=== PATIENT | male | born 1990 | race American Indian/Alaskan Native ===

== ENCOUNTER 2019-05-15 18:00 | Emergency (ER) | payer MEDICAID ==
[2019-05-15 19:41] LABS: Basophils % (Auto) 0.4 % (0.0-1.8); Eosinophils # (Auto) 0.1 K/mm3 (0.0-0.4); Eosinophils % (Auto) 2.2 % (0.0-4.3); Hematocrit 38.1 % (35.5-45.6); Hemoglobin 12.4 gm/dl (11.8-15.2); Lymphocytes # (Auto) 2.3 K/mm3 (1.2-5.4); Mean Corpuscular HGB Conc 33 % (32-34); Mean Corpuscular Volume 89 fl (84-94); Monocytes # (Auto) 0.5 K/mm3 (0.0-0.8); Monocytes % (Auto) 8.2 % (0.0-7.3); Platelet Count 439 K/mm3 (140-440); Red Blood Count 4.31 M/mm3 (3.65-5.03); Red Cell Distribution Width 12.7 % (13.2-15.2)
--- NOTE | 2019-05-15 19:46 | Event Note ---
ED Screening Note Date of service: 05/15/19 Time: 19:43 ED Screening Note: Pt presents with complaints of seizure x today Pt is mentally challenged and a poor historian he states he is currently living at a alf and fell down-unsure of how states diffuse pain all over body This initial assessment/diagnostic orders/clinical plan/treatment(s) is/are subject to change based on patients health status, clinical progression and re- assessment by fellow clinical providers in the ED. Further treatment and workup at subsequent clinical providers discretion. Patient/guardian urged not to elope from the ED as their condition may be serious if not clinically assessed and managed. Initial orders include: labs
[2019-05-15 19:53] LABS: BUN/Creatinine Ratio 46; Blood Urea Nitrogen 23 mg/dL (9-20); Calcium 9.4 mg/dL (8.4-10.2); Hemolysis Index 33
[2019-05-15 19:56] LABS: Alanine Aminotransferase 15 units/L (7-56); Albumin 3.7 g/dL (3.9-5)
[2019-05-15 19:57] LABS: Bilirubin,Direct < 0.2 mg/dL (0-0.2)
[2019-05-15 20:16] LABS: Bilirubin,Urine NEG (Negative); Blood,Urine MOD (Negative); Color,Urine Yellow (Yellow); Protein,Urine <15 mg/dL mg/dL (Negative); RBC,Urine > 182.0 /HPF (0.0-6.0); Urobilinogen,Urine < 2.0 mg/dL (<2.0)
[2019-05-15] MEDS ORDERED: MORPHINE 2 MG/1 ML INJ IV ONE (20:24)
[2019-05-15] MEDS ORDERED: SODIUM CHLORIDE 0.9% 1000 ML 1,000 ML IV ONE (20:24)
[2019-05-15] MEDS ORDERED: KETOROLAC 30 MG/1 ML INJ IV ONE (20:24)
--- NOTE | 2019-05-15 22:29 | Cat Scan Report ---
CT ABDOMEN AND PELVIS WITHOUT CONTRAST INDICATION / CLINICAL INFORMATION: hematuria. TECHNIQUE: Axial CT images were obtained through the abdomen and pelvis without IV contrast. All CT scans at [facility] location are performed using CT dose reduction for ALARA by means of automated exposure control. COMPARISON: None available. FINDINGS: LOWER CHEST: No significant abnormality. LIVER: No significant abnormality. GALLBLADDER: No significant abnormality. BILE DUCTS: No significant abnormality. PANCREAS: No significant abnormality. SPLEEN: No significant abnormality. ADRENALS: No significant abnormality. RIGHT KIDNEY and URETER: No significant abnormality. LEFT KIDNEY and URETER: No significant abnormality. STOMACH and SMALL BOWEL: No significant abnormality. COLON: No significant abnormality. APPENDIX: No significant abnormality. PERITONEUM: No free fluid. No free air. No fluid collection. LYMPH NODES: No significant adenopathy. AORTA and ARTERIES: No significant abnormality. IVC and VEINS: No significant abnormality. URINARY BLADDER: The urinary bladder is mostly collapsed.. REPRODUCTIVE ORGANS: No significant abnormality. ADDITIONAL FINDINGS: None. SKELETAL SYSTEM: No significant abnormality. IMPRESSION: No evidence of nephrolithiasis or obstructive ureteral calculus identified. Signer Name: Kareem Fox MD Signed: 05/15/2019 10:25 PM Workstation Name: [id number]
--- NOTE | 2019-05-15 23:15 | Emergency Department Report ---
ED Male HPI - General Chief complaint: Urogenital-Male Stated complaint: PAINFUL URINATION Time Seen by Provider: 05/15/19 19:40 Source: patient Mode of arrival: Ambulatory Limitations: No Limitations - History of Present Illness Initial comments: Patient is a 28-year-old F [place] male with a past medical history of diabetes who is presenting with hematuria for the past 2 weeks. Patient has some pain with urination. He states that there is blood in his urine daily. He denies any testicular pain or swelling at this time. States he has some mild suprapubic discomfort. Patient states he is never had a history of kidney stones to his knowledge. blood in urine, dysuria. denies: discharge, swelling, urinary retention, fever, nausea/vomiting, incontinence - Related Data Previous Rx's Medication Instructions Recorded Last Taken Type Ciprofloxacin HCl [Ciprofloxacin 500 mg PO Q12HR #14 tab 05/15/19 Unknown Rx TAB] Allergies Allergy/AdvReac Type Severity Reaction Status Date / Time No Known Allergies Allergy Verified 05/15/19 18:22 ED Review of Systems ROS: Stated complaint: PAINFUL URINATION Other details as noted in HPI Comment: All other systems reviewed and negative ED Past Medical Hx - Past Medical History Previous Medical History?: Yes Hx Diabetes: Yes - Surgical History Past Surgical History?: No - Social History Smoking Status: Never Smoker Substance Use Type: None - Medications Home Medications: Home Medications Medication Instructions Recorded Confirmed Last Taken Type Ciprofloxacin HCl [Ciprofloxacin 500 mg PO Q12HR #14 tab 05/15/19 Unknown Rx TAB] ED Physical Exam - General Limitations: No Limitations General appearance: alert, in no apparent distress - Head Head exam: Present: atraumatic, normocephalic - Eye Eye exam: Present: normal appearance - ENT ENT exam: Present: mucous membranes moist - Neck Neck exam: Present: normal inspection - Respiratory Respiratory exam: Present: normal lung sounds bilaterally. Absent: respiratory distress, wheezes, rales, rhonchi - Cardiovascular Cardiovascular Exam: Present: regular rate, normal rhythm, normal heart sounds. Absent: systolic murmur, diastolic murmur, rubs, gallop - GI/Abdominal GI/Abdominal exam: Present: soft, normal bowel sounds. Absent: distended, tenderness, guarding, rebound - Rectal Rectal exam: Present: deferred - Extremities Exam Extremities exam: Present: normal inspection - Back Exam Back exam: Present: normal inspection - Neurological Exam Neurological exam: Present: alert, oriented X3 - Psychiatric Psychiatric exam: Present: normal affect, normal mood - Skin Skin exam: Present: warm, dry, intact, normal color. Absent: rash ED Course Vital Signs 05/15/19 19:58 Temperature 98 F Pulse Rate 86 Respiratory 18 Rate Blood Pressure 127/58 [Left] O2 Sat by Pulse 98 Oximetry ED Medical Decision Making - Lab Data Result diagrams: 05/15/19 19:30 05/15/19 19:30 Lab Results 05/15/19 05/15/19 05/15/19 Range/Units 19:30 19:30 19:30 WBC 6.1 (4.5-11.0) K/mm3 RBC 4.31 (3.65-5.03) M/mm3 Hgb 12.4 (11.8-15.2) gm/dl Hct 38.1 (35.5-45.6) % MCV 89 (84-94) fl MCH 29 (28-32) pg MCHC 33 (32-34) % RDW 12.7 L (13.2-15.2) % Plt Count 439 (140-440) K/mm3 Lymph % (Auto) 38.0 H (13.4-35.0) % [place] % (Auto) 8.2 H (0.0-7.3) % Eos % (Auto) 2.2 (0.0-4.3) % Baso % (Auto) 0.4 (0.0-1.8) % Lymph # 2.3 (1.2-5.4) K/mm3 [place] # 0.5 (0.0-0.8) K/mm3 Eos # 0.1 (0.0-0.4) K/mm3 Baso # 0.0 (0.0-0.1) K/mm3 Seg Neutrophils % 51.2 (40.0-70.0) % Seg Neutrophils # 3.1 (1.8-7.7) K/mm3 Sodium 135 L (137-145) mmol/L Potassium 4.6 (3.6-5.0) mmol/L Chloride 100.0 (98-107) mmol/L Carbon Dioxide 22 (22-30) mmol/L Anion Gap 18 mmol/L BUN 23 H (9-20) mg/dL Creatinine 0.5 L (0.8-1.5) mg/dL Estimated GFR > 60 ml/min BUN/Creatinine Ratio 46 % Glucose 72 L (75-100) mg/dL POC Glucose (70-105) Calcium 9.4 (8.4-10.2) mg/dL Magnesium (1.7-2.3) mg/dL Total Bilirubin 0.20 (0.1-1.2) mg/dL Direct Bilirubin < 0.2 (0-0.2) mg/dL Indirect Bilirubin 0.0 mg/dL AST 19 (5-40) units/L ALT 15 (7-56) units/L Alkaline Phosphatase 64 (35-129) units/L Total Protein 7.7 (6.3-8.2) g/dL Albumin 3.7 L (3.9-5) g/dL Albumin/Globulin Ratio 0.9 % Urine Color (Yellow) Urine Turbidity (Clear) Urine pH (5.0-7.0) Ur Specific [place] (1.003-1.030) Urine Protein (Negative) mg/dL Urine Glucose (UA) (Negative) mg/dL Urine Ketones (Negative) mg/dL Urine Blood (Negative) Urine Nitrite (Negative) Urine Bilirubin (Negative) Urine Urobilinogen (<2.0) mg/dL Ur Leukocyte Esterase (Negative) Urine WBC (Auto) (0.0-6.0) /HPF Urine RBC (Auto) (0.0-6.0) /HPF U Epithel Cells (Auto) (0-13.0) /HPF 05/15/19 05/15/19 05/15/19 Range/Units 19:30 19:58 19:58 WBC (4.5-11.0) K/mm3 RBC (3.65-5.03) M/mm3 Hgb (11.8-15.2) gm/dl Hct (35.5-45.6) % MCV (84-94) fl MCH (28-32) pg MCHC (32-34) % RDW (13.2-15.2) % Plt Count (140-440) K/mm3 Lymph % (Auto) (13.4-35.0) % [place] % (Auto) (0.0-7.3) % Eos % (Auto) (0.0-4.3) % Baso % (Auto) (0.0-1.8) % Lymph # (1.2-5.4) K/mm3 [place] # (0.0-0.8) K/mm3 Eos # (0.0-0.4) K/mm3 Baso # (0.0-0.1) K/mm3 Seg Neutrophils % (40.0-70.0) % Seg Neutrophils # (1.8-7.7) K/mm3 Sodium (137-145) mmol/L Potassium (3.6-5.0) mmol/L Chloride (98-107) mmol/L Carbon Dioxide (22-30) mmol/L Anion Gap mmol/L BUN (9-20) mg/dL Creatinine (0.8-1.5) mg/dL Estimated GFR ml/min BUN/Creatinine Ratio % Glucose (75-100) mg/dL POC Glucose 61 L (70-105) Calcium (8.4-10.2) mg/dL Magnesium 2.00 (1.7-2.3) mg/dL Total Bilirubin (0.1-1.2) mg/dL Direct Bilirubin (0-0.2) mg/dL Indirect Bilirubin mg/dL AST (5-40) units/L ALT (7-56) units/L Alkaline Phosphatase (35-129) units/L Total Protein (6.3-8.2) g/dL Albumin (3.9-5) g/dL Albumin/Globulin Ratio % Urine Color Yellow (Yellow) Urine Turbidity Clear (Clear) Urine pH 7.0 (5.0-7.0) Ur Specific [place] 1.020 (1.003-1.030) Urine Protein <15 mg/dl (Negative) mg/dL Urine Glucose (UA) Neg (Negative) mg/dL Urine Ketones Neg (Negative) mg/dL Urine Blood Mod (Negative) Urine Nitrite Neg (Negative) Urine Bilirubin Neg (Negative) Urine Urobilinogen < 2.0 (<2.0) mg/dL Ur Leukocyte Esterase Neg (Negative) Urine WBC (Auto) 8.0 H (0.0-6.0) /HPF Urine RBC (Auto) > 182.0 (0.0-6.0) /HPF U Epithel Cells (Auto) < 1.0 (0-13.0) /HPF - Radiology Data CT ABDOMEN AND PELVIS WITHOUT CONTRAST INDICATION / CLINICAL INFORMATION: hematuria. TECHNIQUE: Axial CT images were obtained through the abdomen and pelvis without IV contrast. All CT scans at this location are performed using CT dose reduction for ALARA by means of automated exposure control. COMPARISON: None available. FINDINGS: LOWER CHEST: No significant abnormality. LIVER: No significant abnormality. GALLBLADDER: No significant abnormality. BILE DUCTS: No significant abnormality. PANCREAS: No significant abnormality. SPLEEN: No significant abnormality. ADRENALS: No significant abnormality. RIGHT KIDNEY and URETER: No significant abnormality. LEFT KIDNEY and URETER: No significant abnormality. STOMACH and SMALL BOWEL: No significant abnormality. COLON: No significant abnormality. APPENDIX: No significant abnormality. PERITONEUM: No free fluid. No free air. No fluid collection. LYMPH NODES: No significant adenopathy. AORTA and ARTERIES: No significant abnormality. IVC and VEINS: No significant abnormality. URINARY BLADDER: The urinary bladder is mostly collapsed.. REPRODUCTIVE ORGANS: No significant abnormality. ADDITIONAL FINDINGS: None. SKELETAL SYSTEM: No significant abnormality. IMPRESSION: No evidence of nephrolithiasis or obstructive ureteral calculus identified. Signer Name: Kareem Fox MD Signed: 05/15/2019 10:25 PM Workstation Name: [id number] - Medical Decision Making Patient is resting comfortably while in the emergency department. CT shows no gross abnormality. There is no kidney stone passing and no obvious mass in the kidney. Patient be referred to urology for further management. Critical care attestation.: If time is entered above; I have spent that time in minutes in the direct care of this critically ill patient, excluding procedure time. ED Disposition Clinical Impression: Hematuria Qualifiers: Hematuria type: gross Qualified Code(s): R31.0 - Gross hematuria Disposition: TO HOME OR SELFCARE Is pt being admited?: No Does the pt Need Aspirin: No Condition: Stable Instructions: Acute Hematuria (ED) Referrals: GALLITO GIPSON MD [Staff Physician] - 3-5 Days Time of Disposition: 23:17
[2019-05-16 00:19] VITALS: BP 125/70
== END 2019-05-15 23:55 | disposition home or self-care (01) ==
LOC: ED 18:00
DX: R31.9 Hematuria, unspecified (principal); Z79.899 Other long term (current) drug therapy
CPT/HCPCS: 36415; 74176; 80048; 80076; 81001; 82962; 83735; 85025; 96374; 99284; J1885; J7030; J2270

== ENCOUNTER 2019-05-17 20:56 | Emergency (ER) | payer MEDICAID ==
[2019-05-17] MEDS ORDERED: ZIPRASIDONE MESYLATE 20 MG VIAL IM ONE ×2 (21:19→21:20)
--- NOTE | 2019-05-17 22:28 | Emergency Department Report ---
<CRUZ MARTÍNEZ - Last Filed: 05/17/19 22:25> ED General Adult HPI - General Chief complaint: Hyperglycemia Stated complaint: HYPERGYCEMIA/MH EVAL Time Seen by Provider: 05/17/19 21:03 Source: EMS Mode of arrival: Ambulatory Limitations: No Limitations - History of Present Illness Initial comments: Patient is a 28-year-old F [place] male who is presenting with hypoglycemia. Paramedics have brought the patient in because of elevated blood glucose. Patient was recently here in the hospital and was being seen for hematuria. No obvious cysts cause of the hematuria was found that time was given outpatient resources. Patient on his arrival was refusing to have his do his vital signs and despite calling paramedics to bring him to the hospital was very aggressive and oppositional with our staff. Patient was noted to be cursing and yelling in the emergency department. - Related Data Previous Rx's Medication Instructions Recorded Last Taken Type Ciprofloxacin HCl [Ciprofloxacin 500 mg PO Q12HR #14 tab 05/15/19 Unknown Rx TAB] Allergies Allergy/AdvReac Type Severity Reaction Status Date / Time No Known Allergies Allergy Verified 05/17/19 21:21 ED Review of Systems Comment: All other systems reviewed and negative ED Past Medical Hx - Past Medical History Hx Diabetes: Yes - Social History Smoking Status: Never Smoker Substance Use Type: None - Medications Home Medications: Home Medications Medication Instructions Recorded Confirmed Last Taken Type Ciprofloxacin HCl [Ciprofloxacin 500 mg PO Q12HR #14 tab 05/15/19 Unknown Rx TAB] ED Physical Exam - General Limitations: No Limitations General appearance: alert, in no apparent distress - Head Head exam: Present: atraumatic, normocephalic - Eye Eye exam: Present: normal appearance, PERRL, EOMI - ENT ENT exam: Present: mucous membranes moist - Neck Neck exam: Present: normal inspection - Cardiovascular Cardiovascular Exam: Present: regular rate, normal rhythm - GI/Abdominal GI/Abdominal exam: Present: soft. Absent: distended - Psychiatric Psychiatric exam: Present: normal affect, agitated, other (Patient is cursing loudly and was very aggressive with staff.) - Skin Skin exam: Present: warm, dry, intact, normal color. Absent: rash ED Course - Reevaluation(s) Reevaluation #1: 05/17/19 22:27 Patient is had to be placed in isolation. Patient was banging on the door kaplan violently. Patient's blood glucose was only in the 200 range. Patient was given Geodon and will attempt to get blood work on the patient and have him evaluated by our mental health staff. 05/17/19 22:28 ED Disposition Clinical Impression: Hyperglycemia, Agitation Hematuria Qualifiers: Hematuria type: unspecified type Qualified Code(s): R31.9 - Hematuria, unspe cified Disposition: DC- TO HOME OR SELFCARE Condition: Stable <IAIN FRANCIS III - Last Filed: 05/18/19 04:05> ED Course - Reevaluation(s) Reevaluation #2: Patient signed out to me from previous physician, Dr. Martínez. Patient has pending labs for medical clearance. 05/17/19 23:00 Reevaluation #3: Patient had initial labs done which showed a hyperkalemia and elevated blood sugar and hyponatremia. Patient was given fluids and IV insulin and his potassium improved as well as his chemistry improved. Patient is medically cleared. Patient will remain in the ER as an ER hold until seen by our mental health team. Patient's final disposition will come from our mental health and psychiatry team. I discussed all results with patient. I discussed plan of care with patient. Patient agrees with plan of care. 05/18/19 04:08 ED Medical Decision Making - Lab Data Result diagrams: 05/17/19 22:35 05/18/19 02:13 ED Disposition Is pt being admited?: No Does the pt Need Aspirin: No Time of Disposition: 04:15 <TANYAJIM - Last Filed: 05/18/19 11:43> ED Review of Systems ROS: Stated complaint: HYPERGYCEMIA/MH EVAL Other details as noted in HPI ED Course Vital Signs 05/18/19 05/18/19 05/18/19 02:15 08:34 10:10 Temperature 97.3 F L 97.8 F Pulse Rate 79 77 Respiratory 18 18 18 Rate Blood Pressure 114/69 128/75 [Right] O2 Sat by Pulse 97 97 99 Oximetry ED Medical Decision Making - Lab Data Result diagrams: 05/17/19 22:35 05/18/19 02:13 - Medical Decision Making I spoke Frank Velasco per phone new caregiver. Mr. Martínez has been under his care since Thursday. Mr. Martínez has mild cognitive delay. Was recently hospital[facility]ad at [facility] in [place]. Patient takes Depakote for mood stabilization. Has been extremely agitated and aggressive at [facility]. He has called 911 several times. Mr. Martínez tells me "I am not going back to that place." Our mental health pottery machine operator coordinated care with Mr. Velasco the supervisor wet room. Mr. Velasco well take Mr. Martínez to his correction. Psychiatry appointment scheduled for tomorrow at 10:30 AM. Critical care attestation.: If time is entered above; I have spent that time in minutes in the direct care of this critically ill patient, excluding procedure time. ED Disposition Is pt being admited?: No Does the pt Need Aspirin: No Time of Disposition: 11:43
[2019-05-17 22:51] LABS: Basophils % (Auto) 0.4 % (0.0-1.8); Eosinophils # (Auto) 0.1 K/mm3 (0.0-0.4); Hematocrit 40.5 % (35.5-45.6); Mean Corpuscular HGB Conc 32 % (32-34); Mean Corpuscular Volume 89 fl (84-94); Monocytes # (Auto) 0.4 K/mm3 (0.0-0.8); Monocytes % (Auto) 5.6 % (0.0-7.3); Platelet Count 458 K/mm3 (140-440); Red Blood Count 4.57 M/mm3 (3.65-5.03); Red Cell Distribution Width 12.7 % (13.2-15.2)
[2019-05-17 23:01] LABS: Bilirubin,Urine NEG (Negative); Blood,Urine LG (Negative); Color,Urine Yellow (Yellow); Mucus,Urine FEW /HPF; RBC,Urine > 182.0 /HPF (0.0-6.0); Urobilinogen,Urine < 2.0 mg/dL (<2.0)
[2019-05-17 23:02] LABS: Amphetamine Screen,Urine PRESUMPTIVE NEGATIVE; Benzodiazepines Screen,Urine PRESUMPTIVE NEGATIVE; Cannabinoid Screen,Urine PRESUMPTIVE NEGATIVE; Cocaine Screen,Urine PRESUMPTIVE NEGATIVE; Methadone Screen,Urine PRESUMPTIVE NEGATIVE; Opiate Screen,Urine PRESUMPTIVE NEGATIVE
[2019-05-17 23:10] LABS: BUN/Creatinine Ratio 40; Blood Urea Nitrogen 24 mg/dL (9-20); Calcium 9.6 mg/dL (8.4-10.2); Hemolysis Index 8
[2019-05-17] MEDS ORDERED: SODIUM CHLORIDE 0.9% 1000 ML 1,000 ML IV ONE (23:44)
[2019-05-17] MEDS ORDERED: DEXTROSE 50% IN WATER (25GM) 50 ML SYRINGE IV PRN (23:44)
[2019-05-18 02:58] LABS: BUN/Creatinine Ratio 48; Blood Urea Nitrogen 24 mg/dL (9-20); Calcium 8.8 mg/dL (8.4-10.2); Hemolysis Index 10
[2019-05-18] MEDS ORDERED: INSULIN LISPRO 100 UNIT/ML SUB-Q SCH ×2 (07:30)
[2019-05-18 10:10] VITALS: BP 128/75
[2019-05-18] MEDS ORDERED: OLANzapine ZYDIS 5 MG TAB PO PRN (12:02)
[2019-05-18] MEDS ORDERED: OLANzapine ZYDIS 5 MG TAB PO ONE (12:03)
== END 2019-05-18 12:44 | disposition home or self-care (01) ==
LOC: ED 20:56
DX: E11.65 Type 2 diabetes mellitus with hyperglycemia (principal); R31.9 Hematuria, unspecified; R45.1 Restlessness and agitation; Z79.899 Other long term (current) drug therapy
CPT/HCPCS: 36415; 80048; 80164; 80307; 81001; 82962; 85025; 87086; 96360; 96372; 99284; J3486; J7030; 80320; G0480; J1815

== ENCOUNTER 2019-05-21 12:33 | Emergency (ER) | payer MEDICAID ==
[2019-05-21] MEDS ORDERED: SODIUM CHLORIDE 0.9% 1000 ML 1,000 ML IV ONE ×2 (13:10→14:52)
[2019-05-21 14:06] LABS: Basophils % (Auto) 0.6 % (0.0-1.8); Eosinophils % (Auto) 1.2 % (0.0-4.3); Hematocrit 38.1 % (35.5-45.6); Hemoglobin 12.4 gm/dl (11.8-15.2); Lymphocytes # (Auto) 1.3 K/mm3 (1.2-5.4); Lymphocytes % (Auto) 35.3 % (13.4-35.0); Mean Corpuscular HGB Conc 33 % (32-34); Mean Corpuscular Volume 89 fl (84-94); Monocytes # (Auto) 0.3 K/mm3 (0.0-0.8); Monocytes % (Auto) 7.4 % (0.0-7.3); Platelet Count 357 K/mm3 (140-440); Red Blood Count 4.28 M/mm3 (3.65-5.03); Red Cell Distribution Width 12.6 % (13.2-15.2)
[2019-05-21 14:08] LABS: Bilirubin,Urine NEG (Negative); Blood,Urine SM (Negative); Color,Urine Colorless (Yellow); Protein,Urine <15 mg/dL mg/dL (Negative); Urobilinogen,Urine < 2.0 mg/dL (<2.0); WBC,Urine < 1.0 /HPF (0.0-6.0)
[2019-05-21 14:14] LABS: BUN/Creatinine Ratio 28; Blood Urea Nitrogen 17 mg/dL (9-20); Calcium 9.6 mg/dL (8.4-10.2); Hemolysis Index 9
[2019-05-21 14:16] LABS: Amphetamine Screen,Urine PRESUMPTIVE NEGATIVE; Benzodiazepines Screen,Urine PRESUMPTIVE NEGATIVE; Cannabinoid Screen,Urine PRESUMPTIVE NEGATIVE; Cocaine Screen,Urine PRESUMPTIVE NEGATIVE; Methadone Screen,Urine PRESUMPTIVE NEGATIVE; Opiate Screen,Urine PRESUMPTIVE NEGATIVE
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
[2019-05-21] MEDS ORDERED: INSULIN REGULAR, HUMAN 100 UNITS/1 ML IV ONE (14:53)
[2019-05-21 16:39] LABS: BUN/Creatinine Ratio 30; Blood Urea Nitrogen 15 mg/dL (9-20); Hemolysis Index 5
--- NOTE | 2019-05-22 11:47 | Event Note ---
Date: 05/22/19 Patient was assessed by the DD team and patient is not a harm to self or others. Patient will go back to the longterm.
[2019-05-22 12:24] VITALS: BP 116/65
== END 2019-05-22 13:40 | disposition home or self-care (01) ==
LOC: ED 12:33
DX: E11.65 Type 2 diabetes mellitus with hyperglycemia (principal); R45.1 Restlessness and agitation; Z02.89 Encounter for other administrative examinations; Z79.899 Other long term (current) drug therapy
CPT/HCPCS: 36415; 80048; 80307; 81001; 82805; 82962; 85025; 96360; 99284; J7030; 80320; 96361; G0480

== ENCOUNTER 2019-06-11 19:10 | Emergency (ER) | payer MEDICAID ==
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
[2019-06-11 20:44] LABS: Basophils % (Auto) 0.4 % (0.0-1.8); Eosinophils % (Auto) 0.6 % (0.0-4.3); Hematocrit 44.5 % (35.5-45.6); Hemoglobin 14.5 gm/dl (11.8-15.2); Lymphocytes # (Auto) 1.7 K/mm3 (1.2-5.4); Lymphocytes % (Auto) 34.9 % (13.4-35.0); Mean Corpuscular HGB Conc 33 % (32-34); Mean Corpuscular Volume 89 fl (84-94); Monocytes # (Auto) 0.3 K/mm3 (0.0-0.8); Monocytes % (Auto) 5.7 % (0.0-7.3); Platelet Count 266 K/mm3 (140-440); Red Blood Count 5.01 M/mm3 (3.65-5.03); Red Cell Distribution Width 13.5 % (13.2-15.2)
[2019-06-11 21:01] LABS: BUN/Creatinine Ratio 33; Blood Urea Nitrogen 23 mg/dL (9-20); Calcium 9.6 mg/dL (8.4-10.2); Hemolysis Index 11
[2019-06-11 21:47] LABS: Bacteria,Urine 1+ /HPF (Negative); Mucus,Urine FEW /HPF
[2019-06-11 21:48] LABS: Bilirubin,Urine NEG (Negative); Blood,Urine NEG (Negative); Color,Urine Yellow (Yellow); Protein,Urine <15 mg/dL mg/dL (Negative); Urobilinogen,Urine < 2.0 mg/dL (<2.0)
[2019-06-11 21:52] LABS: Amphetamine Screen,Urine PRESUMPTIVE NEGATIVE; Benzodiazepines Screen,Urine PRESUMPTIVE NEGATIVE; Cannabinoid Screen,Urine PRESUMPTIVE NEGATIVE; Cocaine Screen,Urine PRESUMPTIVE NEGATIVE; Methadone Screen,Urine PRESUMPTIVE NEGATIVE; Opiate Screen,Urine PRESUMPTIVE NEGATIVE
[2019-06-12 13:47] VITALS: BP 120/60
== END 2019-06-12 15:15 | disposition home or self-care (01) ==
LOC: ED 19:10
DX: R45.1 Restlessness and agitation (principal); F41.9 Anxiety disorder, unspecified; F91.9 Conduct disorder, unspecified; E11.9 Type 2 diabetes mellitus without complications; Z79.899 Other long term (current) drug therapy
CPT/HCPCS: 36415; 80048; 80307; 80320; 81001; 82962; 85025; G0480

== ENCOUNTER 2020-01-30 21:02 | Emergency (ER) | payer SELFPAY ==
[2020-01-31] MEDS ORDERED: DEXTROSE 50% IN WATER (25GM) 50 ML VIAL IV PRN (03:39)
--- NOTE | 2020-01-31 03:40 | Emergency Department Report ---
ED General Adult HPI - General Chief complaint: Medical Clearance Stated complaint: MH EVALUATION PUI?: No Time Seen by Provider: 01/31/20 03:31 Source: patient, EMS, RN notes reviewed, old records reviewed Mode of arrival: Ambulatory Limitations: No Limitations - History of Present Illness Initial comments: The patient was evaluated in the emergency department for symptoms described in the history of present illness. He/she was evaluated in the context of the global COVID-19 pandemic, which necessitated consideration that the patient might be at risk for infection with the virus that causes COVID-19. Institutional protocols and algorithms that pertain to the evaluation of patients at risk for COVID-19 are in a state of rapid change based on information released by regulatory bodies including the CDC and federal and state organizations. These policies and algorithms were followed during the patient's care in the emergency department. Please note that these policies, procedures and recommendations changed on a rapid basis. Patient is a 29-year-old gentleman with a reported history of bipolar and type 1 diabetes. He is brought to the hospital by emergency medical services. The patient's chief complaint is that he wants a new place to live. He denies physical pain. He denies homicidality and suicidality. He denies fever, cough, loss of taste, loss of smell. He denies urinary symptoms. He states that he walked/run away from his long term, because he does not like it there. He tells me that he walked and ran away, and went to a nail salon, where he reports that emergency medical services were contacted. He denies all medical complaints at this time. He is listening to music on a tablet device. He is not accompanied by friends or family at this time for additional information or collateral information. -: days(s) (1) Improves with: none Worsens with: none Associated Symptoms: denies other symptoms - Related Data Previous Rx's Medication Instructions Recorded Last Taken Type OLANzapine ZYDIS [ZyPREXA Zydis] 5 mg PO DAILY #30 tab.rapdis 05/18/19 Unknown Rx Allergies Allergy/AdvReac Type Severity Reaction Status Date / Time No Known Allergies Allergy Verified 05/17/19 21:21 ED Review of Systems ROS: Stated complaint: MH EVALUATION Other details as noted in HPI Comment: All other systems reviewed and negative ED Past Medical Hx - Past Medical History Hx Diabetes: Yes Hx Psychiatric Treatment: Yes (schizophrenia,bipolar) - Social History Smoking Status: Never Smoker Substance Use Type: None - Medications Home Medications: Home Medications Medication Instructions Recorded Confirmed Last Taken Type OLANzapine ZYDIS [ZyPREXA Zydis] 5 mg PO DAILY #30 tab.rapdis 05/18/19 05/22/19 Unknown Rx ED Physical Exam - General Limitations: No Limitations General appearance: alert, in no apparent distress - Head Head exam: Present: atraumatic, normocephalic - Eye Eye exam: Present: normal appearance, EOMI, other (Left-sided exotropic strabismus). Absent: nystagmus - ENT ENT exam: Present: normal exam, normal orophraynx, mucous membranes moist, normal external ear exam - Neck Neck exam: Present: normal inspection, full ROM. Absent: tenderness, meningismus - Respiratory Respiratory exam: Present: normal lung sounds bilaterally. Absent: respiratory distress, wheezes, rales, rhonchi, stridor, decreased breath sounds - Cardiovascular Cardiovascular Exam: Present: regular rate, normal rhythm, normal heart sounds. Absent: bradycardia, tachycardia, irregular rhythm, systolic murmur, diastolic murmur, rubs, gallop - GI/Abdominal GI/Abdominal exam: Present: soft, normal bowel sounds. Absent: distended, tenderness, guarding, rebound, rigid, pulsatile mass - Rectal Rectal exam: Present: deferred - Extremities Exam Extremities exam: Present: normal inspection, full ROM, other (2+ pulses noted in the bilateral upper and lower extremities. There is no palpable cord. negative Homans sign. Muscular compartments are soft. The pelvis is stable.). Absent: pedal edema, calf tenderness - Back Exam Back exam: Present: normal inspection, full ROM. Absent: tenderness, CVA tenderness (R), CVA tenderness (L), paraspinal tenderness, vertebral tenderness - Neurological Exam Neurological exam: Present: alert, oriented X3, other (No facial droop. Tongue midline. Extraocular movements intact bilaterally. Facial sensation intact to light touch in V1, V2, V3 distribution bilaterally. 5 and a 5 strength in 4 extremities. Sensation intact to light touch in 4 extremities.) - Psychiatric Psychiatric exam: Present: normal affect, normal mood. Absent: homicidal ideation, suicidal ideation - Skin Skin exam: Present: warm, dry, intact, normal color. Absent: rash ED Course Vital Signs 01/30/20 01/31/20 22:43 03:54 Temperature 98.7 F Pulse Rate 92 H Respiratory 16 18 Rate Blood Pressure 124/74 O2 Sat by Pulse 97 Oximetry ED Medical Decision Making - Lab Data Vital Signs 01/30/20 01/31/20 22:43 03:54 Temperature 98.7 F Pulse Rate 92 H Respiratory 16 18 Rate Blood Pressure 124/74 O2 Sat by Pulse 97 Oximetry Lab Results 01/31/20 01/31/20 Range/Units 03:04 03:55 POC Glucose < 40 L 134 H (70-105) mg/dL - Medical Decision Making Differential diagnosis, including but not limited to: Resolved hypoglycemia, case management patient Assessment and plan: 29-year-old gentleman with no acute medical complaints at this time, resolved hypoglycemia, states he does not take oral sulfonylureas without homicidality, suicidality, fever, cough, loss of taste, loss of smell, no indication of homicidality or suicidality, pleasant, calm and cooperative. Does not meet criteria for 1013 hold or involuntary hold at this time. To me, his main complaint is request for a new long term placement. This appears to be primarily a case issue. Initially found to be hypoglycemic, given oral foods, repeat Accu-Chek within normal limits. He is not clinically hyperglycemic or encephalopathic at this time. As needed Accu-Cheks ordered, as needed dextrose ordered, regular diet ordered, and case management consultation ordered. Patient does not appear to have an emergent medical condition at this time that meets criteria for inpatient admission or hospitalization. He does not meet criteria for 1013 hold or involuntary confinement. He is medically safe and suitable for discharge at this time, but final disposition pending case management evaluation. Critical care attestation.: If time is entered above; I have spent that time in minutes in the direct care of this critically ill patient, excluding procedure time. ED Disposition Clinical Impression: History of hypoglycemia, Case management patient Disposition: DC-01 TO HOME OR SELFCARE Is pt being admited?: No Does the pt Need Aspirin: No Condition: Stable Additional Instructions: Please continue current outpatient medications. Follow-up with your primary care doctor within the next week.. Follow-up with your psychiatrist within the next month. Please adhere to a diabetic appropriate diet. Please return to the emergency room right away with new pain, worsening pain, migration of pain, projectile vomiting, change in mental status, confusion, inability to tolerate liquid feeds, new, worsened or different symptoms not present on the initial emergency room evaluation. Referrals: EJ CARTER MD [Staff Physician[facility] Days
[2020-01-31 07:06] VITALS: BP 118/66
== END 2020-01-31 07:04 | disposition home or self-care (01) ==
LOC: ED 21:02
DX: E11.65 Type 2 diabetes mellitus with hyperglycemia (principal); F25.0 Schizoaffective disorder, bipolar type; Z79.899 Other long term (current) drug therapy; Z86.39 Personal history of other endocrine, nutritional and metabolic disease
CPT/HCPCS: 82962

== ENCOUNTER 2020-02-04 17:59 | Emergency (ER) | payer SELFPAY ==
--- NOTE | 2020-02-04 18:51 | Emergency Department Report ---
<CLAUDIO WALKER - Last Filed: 02/05/20 00:40> ED Psych HPI - General Chief Complaint: Psych Stated Complaint: MH EVAL Time Seen by Provider: 02/04/20 18:19 Source: patient, EMS Mode of arrival: Ambulatory Limitations: No Limitations - History of Present Illness Initial Comments: 29-year-old male with a past medical history of type 1 diabetes on insulin, schizophrenia, bipolar disorder presents to the hospital because he is homeless. Patient states he had a conflict with the people at his skilled nursing. They told him if he leaves he cant come back. Patient went to [facility] to get food and then called EMS to come to the hospital because he did not feel safe with no place to go. He complains of pain to his penis and discomfort with urination. He states he masturbates but denies sexual intercourse with another person in several years. Denies penile trauma. Patient states he is taking his insulin as prescribed but is currently drinking soda and eating Bangladeshi food at time of arrival. Patient did not endorse suicidal ideation, homicidal ideation, auditory hallucinations, or visual hallucinations upon arrival. - Related Data Previous Rx's Medication Instructions Recorded Last Taken Type OLANzapine ZYDIS [ZyPREXA Zydis] 5 mg PO DAILY #30 tab.rapdis 05/18/19 Unknown Rx Sulfamethoxazole/Trimethoprim 1 each PO Q12HR #10 tablet 02/05/20 Unknown Rx [Bactrim DS TAB] Allergies Allergy/AdvReac Type Severity Reaction Status Date / Time No Known Allergies Allergy Verified 05/17/19 21:21 ED Past Medical Hx - Past Medical History Hx Diabetes: Yes Hx Psychiatric Treatment: Yes (schizophrenia,bipolar) - Social History Smoking Status: Never Smoker Substance Use Type: None - Medications Home Medications: Home Medications Medication Instructions Recorded Confirmed Last Taken Type OLANzapine ZYDIS [ZyPREXA Zydis] 5 mg PO DAILY #30 tab.rapdis 05/18/19 05/22/19 Unknown Rx Sulfamethoxazole/Trimethoprim 1 each PO Q12HR #10 tablet 02/05/20 Unknown Rx [Bactrim DS TAB] ED Physical Exam - General Limitations: No Limitations - Other Other exam information: General: No acute distress Head: Atraumatic Eyes: normal appearance ENT: Moist mucous membranes Neck: Normal appearance, no midline tenderness Chest: Clear to auscultation bilaterally CV: Regular rate and rhythm Abdomen: Soft, normal bowel sounds, nontender, nondistended, no rebound or guarding : Circumcised, no penile lesions, no discharge, no testicular tenderness or epididymal tenderness. No scrotal or testicular swelling. Back: Normal inspection Extremity: Normal inspection, full range of motion Neuro: Alert O x 3, no facial asymmetry, speech clear, no gross motor sensory deficit Psych: Appropriate behavior Skin: No rash ED Medical Decision Making - Lab Data Result diagrams: 02/04/20 19:32 02/04/20 19:32 Lab Results 02/04/20 02/04/20 02/04/20 Range/Units 18:55 19:32 19:32 WBC 6.7 (4.5-11.0) K/mm3 RBC 4.41 (3.65-5.03) M/mm3 Hgb 13.2 (11.8-15.2) gm/dl Hct 38.4 (35.5-45.6) % MCV 87 (84-94) fl MCH 30 (28-32) pg MCHC 34 (32-34) % RDW 12.9 L (13.2-15.2) % Plt Count 244 (140-440) K/mm3 Lymph % (Auto) 35.7 H (13.4-35.0) % [place] % (Auto) 5.6 (0.0-7.3) % Eos % (Auto) 1.2 (0.0-4.3) % Baso % (Auto) 0.6 (0.0-1.8) % Lymph # (Auto) 2.4 (1.2-5.4) K/mm3 [place] # (Auto) 0.4 (0.0-0.8) K/mm3 Eos # (Auto) 0.1 (0.0-0.4) K/mm3 Baso # (Auto) 0.0 (0.0-0.1) K/mm3 Seg Neutrophils % 56.9 (40.0-70.0) % Seg Neutrophils # 3.8 (1.8-7.7) K/mm3 Sodium 139 (137-145) mmol/L Potassium 4.0 (3.6-5.0) mmol/L Chloride 103.9 (98-107) mmol/L Carbon Dioxide 24 (22-30) mmol/L Anion Gap 15 mmol/L BUN 12 (9-20) mg/dL Creatinine 0.5 L (0.8-1.3) mg/dL Estimated GFR > 60 ml/min BUN/Creatinine Ratio 24 % Glucose 90 (75-100) mg/dL POC Glucose 115 H (70-105) mg/dL Calcium 8.8 (8.4-10.2) mg/dL Urine Color (Yellow) Urine Turbidity (Clear) Urine pH (5.0-7.0) Ur Specific [place] (1.003-1.030) Urine Protein (Negative) mg/dL Urine Glucose (UA) (Negative) mg/dL Urine Ketones (Negative) mg/dL Urine Blood (Negative) Urine Nitrite (Negative) Urine Bilirubin (Negative) Urine Urobilinogen (<2.0) mg/dL Ur Leukocyte Esterase (Negative) Urine WBC (Auto) (0.0-6.0) /HPF Urine RBC (Auto) (0.0-6.0) /HPF U Epithel Cells (Auto) (0-13.0) /HPF Urine Mucus /HPF Urine Opiates Screen Urine Methadone Screen Ur Barbiturates Screen Ur Phencyclidine Scrn Ur Amphetamines Screen U Benzodiazepines Scrn Urine Cocaine Screen U Marijuana (THC) Screen Drugs of Abuse Note Plasma/Serum Alcohol (0-0.07) % 02/04/20 02/04/20 02/04/20 Range/Units 19:32 Unknown Unknown WBC (4.5-11.0) K/mm3 RBC (3.65-5.03) M/mm3 Hgb (11.8-15.2) gm/dl Hct (35.5-45.6) % MCV (84-94) fl MCH (28-32) pg MCHC (32-34) % RDW (13.2-15.2) % Plt Count (140-440) K/mm3 Lymph % (Auto) (13.4-35.0) % [place] % (Auto) (0.0-7.3) % Eos % (Auto) (0.0-4.3) % Baso % (Auto) (0.0-1.8) % Lymph # (Auto) (1.2-5.4) K/mm3 [place] # (Auto) (0.0-0.8) K/mm3 Eos # (Auto) (0.0-0.4) K/mm3 Baso # (Auto) (0.0-0.1) K/mm3 Seg Neutrophils % (40.0-70.0) % Seg Neutrophils # (1.8-7.7) K/mm3 Sodium (137-145) mmol/L Potassium (3.6-5.0) mmol/L Chloride (98-107) mmol/L Carbon Dioxide (22-30) mmol/L Anion Gap mmol/L BUN (9-20) mg/dL Creatinine (0.8-1.3) mg/dL Estimated GFR ml/min BUN/Creatinine Ratio % Glucose (75-100) mg/dL POC Glucose (70-105) mg/dL Calcium (8.4-10.2) mg/dL Urine Color Yellow (Yellow) Urine Turbidity Clear (Clear) Urine pH 5.0 (5.0-7.0) Ur Specific [place] 1.034 H (1.003-1.030) Urine Protein 30 mg/dl (Negative) mg/dL Urine Glucose (UA) Neg (Negative) mg/dL Urine Ketones 20 (Negative) mg/dL Urine Blood Neg (Negative) Urine Nitrite Neg (Negative) Urine Bilirubin Neg (Negative) Urine Urobilinogen 4.0 (<2.0) mg/dL Ur Leukocyte Esterase Tr (Negative) Urine WBC (Auto) 13.0 H (0.0-6.0) /HPF Urine RBC (Auto) 2.0 (0.0-6.0) /HPF U Epithel Cells (Auto) 1.0 (0-13.0) /HPF Urine Mucus 1+ /HPF Urine Opiates Screen Presumptive negative Urine Methadone Screen Presumptive negative Ur Barbiturates Screen Presumptive negative Ur Phencyclidine Scrn Presumptive negative Ur Amphetamines Screen Presumptive negative U Benzodiazepines Scrn Presumptive negative Urine Cocaine Screen Presumptive negative U Marijuana (THC) Screen Presumptive negative Drugs of Abuse Note Disclamer Plasma/Serum Alcohol < 0.01 (0-0.07) % - Medical Decision Making Patient presents to the hospital due to homelessness and nowhere to go. He does have underlying psychiatric condition but denies suicidal ideation, homicidal ideation, acute psychosis. Patient is pleasant and very talkative in the ED and follows commands without combativeness. Patient endorses urinary symptoms without recent sexual intercourse. UA suggestive of infection. Patient was treated with Rocephin and azithromycin to cover for STDs and UTI and will will be continued on Bactrim twice a day. Based on my initial assessment patient does not require acute inpatient psychiatric admission and is therefore not a 1013. Case management consult has been ordered for the a.m.. Is unclear the dose of patient's current insulin therefore will place on regular insulin sliding scale 3 times daily AC Patient did receive mental health evaluation as per medical record review and evaluate agrees that patient does not meet 1013 criteria and is more of a case management issue. Critical Care Time: No ED Disposition Clinical Impression: Case management patient, Diabetes, Schizophrenia, Bipolar disorder, Pyuria Disposition: DC- TO HOME OR SELFCARE Is pt being admited?: No Condition: Stable Instructions: Diabetes Mellitus Type 2 in Adults (ED) Additional Instructions: Outpatient COMMUNITY Behavioral Health Resources: [facility] ([facility]) [address] [place] [address] / Thursday thru Thursday - 8am - 5pm [facility] Address: [address] [place] [address] Thursday thru Thursday- 7am-2pm [facility] Address: [address] [place] [address] Thursday thru Thursday: 8:30AM-5PM [facility]IS[facility] RESOURCES [place] Crisis Line: Suicide Prevention Line: Crisis Text Line: Text START to [phone] Emergency: 911 Prescriptions: Sulfamethoxazole/Trimethoprim [Bactrim DS TAB] 1 each PO Q12HR #10 tablet Referrals: PRIMARY CAREMD [Primary Care Provider] - 3-5 Days <MEIR NAYAK - Last Filed: 02/05/20 17:04> ED Review of Systems ROS: Stated complaint: MH EVAL Other details as noted in HPI ED Course Vital Signs 02/04/20 02/04/20 02/04/20 19:09 20:00 22:00 Temperature 98.2 F 98.3 F Pulse Rate 86 89 Respiratory 19 20 20 Rate Blood Pressure Blood Pressure 125/69 129/70 [Left] O2 Sat by Pulse 98 98 99 Oximetry 02/05/20 02:51 Temperature 98.0 F Pulse Rate 67 Respiratory 18 Rate Blood Pressure 117/72 Blood Pressure [Left] O2 Sat by Pulse 98 Oximetry - Reevaluation(s) Reevaluation #1: 02/05/20 07:48 Patient medically cleared yesterday. Psychiatry team has evaluated the patient and indicated he does not meet criteria for involuntary hold or 1013/confinement. The patient states he wants to leave. The patient states he will take a bus "somewhere", or "go to a intermediate." Hyperglycemia is chronic. Does not have anion gap acidosis. Medicated yesterday by the initial physician. Based off of the information, current history and physical examination, patient does have the right to leave this emergency room and seek intermediate/accommodation on his own, if he so desires. ED Medical Decision Making - Lab Data Result diagrams: 02/04/20 19:32 02/04/20 19:32 Critical care attestation.: If time is entered above; I have spent that time in minutes in the direct care of this critically ill patient, excluding procedure time. ED Disposition Is pt being admited?: No Does the pt Need Aspirin: No
[2020-02-04 19:38] LABS: Bilirubin,Urine NEG (Negative); Blood,Urine NEG (Negative); Color,Urine Yellow (Yellow); Mucus,Urine 1+ /HPF
[2020-02-04 19:48] LABS: Amphetamine Screen,Urine PRESUMPTIVE NEGATIVE; Benzodiazepines Screen,Urine PRESUMPTIVE NEGATIVE; Cannabinoid Screen,Urine PRESUMPTIVE NEGATIVE; Cocaine Screen,Urine PRESUMPTIVE NEGATIVE; Methadone Screen,Urine PRESUMPTIVE NEGATIVE; Opiate Screen,Urine PRESUMPTIVE NEGATIVE
[2020-02-04 19:52] LABS: Basophils % (Auto) 0.6 % (0.0-1.8); Eosinophils # (Auto) 0.1 K/mm3 (0.0-0.4); Eosinophils % (Auto) 1.2 % (0.0-4.3); Hematocrit 38.4 % (35.5-45.6); Hemoglobin 13.2 gm/dl (11.8-15.2); Lymphocytes # (Auto) 2.4 K/mm3 (1.2-5.4); Lymphocytes % (Auto) 35.7 % (13.4-35.0); Mean Corpuscular HGB Conc 34 % (32-34); Mean Corpuscular Volume 87 fl (84-94); Monocytes # (Auto) 0.4 K/mm3 (0.0-0.8); Monocytes % (Auto) 5.6 % (0.0-7.3); Platelet Count 244 K/mm3 (140-440); Red Blood Count 4.41 M/mm3 (3.65-5.03); Red Cell Distribution Width 12.9 % (13.2-15.2)
[2020-02-04 20:04] LABS: Blood Urea Nitrogen 12 mg/dL (9-20); Calcium 8.8 mg/dL (8.4-10.2); Hemolysis Index 18
[2020-02-04 20:29] LABS: BUN/Creatinine Ratio 24
[2020-02-04] MEDS ORDERED: AZITHROMYCIN 250 MG TAB PO ONE (22:57)
[2020-02-04] MEDS ORDERED: LIDOCAINE-MPF (1%) 10 MG/1 ML VIAL 5 ML INFILTRATI ONE (22:57)
[2020-02-05] MEDS ORDERED: INSULIN REGULAR, HUMAN 100 UNIT/ML 3ML VIAL SUB-Q ONE (01:10)
[2020-02-05] MEDS ORDERED: LIDOCAINE-MPF (1%) 10 MG/1 ML VIAL 5 ML ONE (01:11)
[2020-02-05] MEDS ORDERED: INSULIN REGULAR, HUMAN 100 UNITS/1 ML ONE (01:30)
[2020-02-05 04:07] VITALS: BP 117/72
[2020-02-05] MEDS ORDERED: INSULIN REGULAR, HUMAN 100 UNIT/ML 3ML VIAL SUB-Q SCH (07:30)
[2020-02-05] MEDS ORDERED: SULFAMETHOXAZOLE/TRIMETHOPRIM 800/160MG DS TAB PO SCH (10:00)
[2020-02-05] MEDS ORDERED: OLANzapine ZYDIS 5 MG TAB PO SCH (10:00)
== END 2020-02-05 08:00 | disposition home or self-care (01) ==
LOC: ED 17:59 → EEVIPCON 17:59 → ED 02-05 08:00
DX: E11.9 Type 2 diabetes mellitus without complications (principal); F25.0 Schizoaffective disorder, bipolar type; R82.81 Pyuria; Z71.89 Other specified counseling; Z79.899 Other long term (current) drug therapy
CPT/HCPCS: 36415; 80048; 80307; 81001; 82962; 85025; 87086; 87591; 96372; 99284; J0696; 80320; G0480; J1815

== ENCOUNTER 2020-02-07 19:09 | Emergency (ER) | payer SELFPAY ==
[2020-02-07 19:50] VITALS: BP 122/70
--- NOTE | 2020-02-07 23:05 | Emergency Department Report ---
ED General Adult HPI - General Chief complaint: Medical Clearance Stated complaint: MEDICAL CLEARANCE Time Seen by Provider: 02/07/20 21:30 Source: patient Mode of arrival: Ambulatory Limitations: No Limitations - History of Present Illness Initial comments: 29-year-old male with a past medical history of type 1 diabetes on insulin, schizophrenia, bipolar disorder presents to the hospital stating he is homeless and requesting criminal justice social worker consult for assistance with housing. pt states he currently lives in senior care but wants to live on his own. pt is a/o x 3, with nad , no SI or HI, pt appears mild anxious and focused on obtain his on own apartment. Pt has been seen and medically cleared 2 days ago in this ED . he did receive and Psych evaluation and noted as not being SI or HI and cleared for dc to selft. He was tx'd for pyruira and dc'd with rx which he does endorse taking ass prescribed. Pt denies pain , dizziness, lightheadednes or n/v at this time He is tolerating po intake without n/v, pt affect is mildly anxious , with normal mentation. Patient states he wants to leave assisted senior care because because he is tired of living there and want to move out. - Related Data Previous Rx's Medication Instructions Recorded Last Taken Type OLANzapine ZYDIS [ZyPREXA Zydis] 5 mg PO DAILY #30 tab.rapdis 05/18/19 Unknown Rx Sulfamethoxazole/Trimethoprim 1 each PO Q12HR #10 tablet 02/05/20 Unknown Rx [Bactrim DS TAB] Allergies Allergy/AdvReac Type Severity Reaction Status Date / Time No Known Allergies Allergy Verified 05/17/19 21:21 ED Review of Systems ROS: Stated complaint: MEDICAL CLEARANCE Other details as noted in HPI Constitutional: denies: chills, fever Eyes: denies: eye pain, eye discharge, vision change ENT: denies: ear pain, throat pain Respiratory: denies: cough, shortness of breath, wheezing Cardiovascular: denies: chest pain, palpitations Endocrine: no symptoms reported Gastrointestinal: denies: abdominal pain, nausea, vomiting, diarrhea Genitourinary: as per HPI Musculoskeletal: denies: back pain, joint swelling, arthralgia Skin: denies: rash, lesions Neurological: denies: headache, weakness, paresthesias Psychiatric: anxiety. denies: depression, auditory hallucinations, visual hallucinations, homicidal thoughts, suicidal thoughts Hematological/Lymphatic: denies: easy bleeding, easy bruising ED Past Medical Hx - Past Medical History Hx Diabetes: Yes Hx Psychiatric Treatment: Yes (schizophrenia,bipolar) - Social History Smoking Status: Never Smoker Substance Use Type: None - Medications Home Medications: Home Medications Medication Instructions Recorded Confirmed Last Taken Type OLANzapine ZYDIS [ZyPREXA Zydis] 5 mg PO DAILY #30 tab.rapdis 05/18/19 05/22/19 Unknown Rx Sulfamethoxazole/Trimethoprim 1 each PO Q12HR #10 tablet 02/05/20 Unknown Rx [Bactrim DS TAB] ED Physical Exam - General Limitations: No Limitations General appearance: alert, in no apparent distress - Head Head exam: Present: atraumatic, normocephalic - Eye Eye exam: Present: normal appearance, PERRL, EOMI Pupils: Present: normal accommodation - ENT ENT exam: Present: normal exam - Neck Neck exam: Present: normal inspection - Respiratory Respiratory exam: Present: normal lung sounds bilaterally. Absent: respiratory distress - Cardiovascular Cardiovascular Exam: Present: regular rate, normal rhythm. Absent: systolic murmur, diastolic murmur, rubs, gallop - GI/Abdominal GI/Abdominal exam: Present: soft, normal bowel sounds. Absent: distended, tenderness, guarding, rebound, rigid, bruit, hernia - Rectal Rectal exam: Present: deferred - Extremities Exam Extremities exam: Present: normal inspection, full ROM. Absent: tenderness - Back Exam Back exam: Present: normal inspection, full ROM. Absent: tenderness, CVA tenderness (R), CVA tenderness (L) - Neurological Exam Neurological exam: Present: alert, oriented X3, CN II-XII intact, normal gait, reflexes normal. Absent: motor sensory deficit - Psychiatric Psychiatric exam: Present: normal affect, normal mood, anxious. Absent: agitated, flat affect, manic, homicidal ideation, suicidal ideation - Skin Skin exam: Present: warm, dry, intact, normal color. Absent: rash ED Course Vital Signs 02/07/20 19:47 Temperature 98.1 F Pulse Rate 72 Respiratory 18 Rate Blood Pressure 122/70 O2 Sat by Pulse 100 Oximetry ED Medical Decision Making - Medical Decision Making Patient medically cleared 2 days ago. Psychiatry evaluated the patient same day and indicated he does not meet criteria for involuntary hold or 1013/confinement. pt does have the right to leave this emergency room and seek longterm/accommodation on his own. Accucheck: pt will be dc'd to self , pt will follow up with pcp in 2-3 days. pt verbalized agreement and understanding of same. Social Work Case Management onsult placed will see patient in am. pt verbalized agreement with same. pt now eloped prior to completion of criminal justice social worker / case managent consult. pt is not HI or SI, pt with no other complaint tonight. Critical care attestation.: If time is entered above; I have spent that time in minutes in the direct care of this critically ill patient, excluding procedure time. ED Disposition Clinical Impression: Case management patient Disposition: ELOPED Is pt being admited?: No Does the pt Need Aspirin: No Condition: Stable Additional Instructions: Outpatient COMMUNITY Behavioral Health Resources: [facility] ([facility]) [address] [place] [address] / [phone] Thursday thru Thursday - 8am - 5pm [facility] Address: [address] [place] [address] Thursday thru Thursday- 7am-2pm [facility] Address: [address] [place] [address] Thursday thru Thursday: 8:30AM-5PM CRIS[facility] RESOURCES [place] Crisis Line: Suicide Prevention Line: Crisis Text Line: Text START to [phone] Emergency: 911 Referrals: PRIMARY CARE, [Primary Care Provider] - 3-5 Days
== END 2020-02-07 22:00 | disposition left against medical advice (07) ==
LOC: ED 19:09
DX: Z00.00 Encounter for general adult medical examination without abnormal findings (principal)
CPT/HCPCS: 99281

== ENCOUNTER 2020-02-09 12:35 | Emergency (ER) | payer SELFPAY ==
[2020-02-09 12:53] VITALS: BP 134/77
--- NOTE | 2020-02-09 13:02 | Emergency Department Report ---
Chief Complaint: Medical Clearance Stated Complaint: HYPERGLYCEMIA Time Seen by Provider: 02/09/20 12:56 - HPI History of Present Illness: 29-year-old -Armenian male with a past medical history of diabetes and mental health disease is brought in by EMS for elevated blood sugar of 361. Patient is noncompliant and has not taken his medications. Patient only complains that he is hungry. - Exam Vital Signs: Vital Signs 02/09/20 12:52 Temperature 98.3 F Pulse Rate 77 Respiratory 18 Rate Blood Pressure 134/77 [Right] O2 Sat by Pulse 100 Oximetry Physical Exam: Alert and oriented x3 no acute distress nontoxic in appearance Lungs no respiratory distress no accessory muscles use Cardiac regular rate and rhythm Abdomen soft nontender nondistended Ambulatory without difficulties Psych patient cussing and trying to provoke a fight with security. MSE screening note: Focused history and physical exam performed. Due to findings the following was ordered: 29-year-old -Armenian male with a past medical history of diabetes and mental health disease is brought in by EMS for elevated blood sugar of 361. Patient is noncompliant and has not taken his medications. Patient only complains that he is hungry. ED Disposition for MSE Clinical Impression: Diabetes, Schizophrenia, Agitation Disposition: Z-07 MED SCREENING EXAM-LEFT Is pt being admited?: No Does the pt Need Aspirin: No Condition: Stable Instructions: Diabetes Mellitus Type 2 in Adults (ED) Additional Instructions: It is very important for you to take your diabetic medication as this is important to manage her diabetes. Emergency room would not be able to give your medication every day. Referrals: EJ CARTER MD [Staff Physician] - 3-5 Days
== END 2020-02-09 14:00 | disposition left against medical advice (07) ==
LOC: ED 12:35
DX: F25.0 Schizoaffective disorder, bipolar type (principal); R45.1 Restlessness and agitation; E11.9 Type 2 diabetes mellitus without complications; Z53.21 Procedure and treatment not carried out due to patient leaving prior to being seen by health care provider
CPT/HCPCS: 99282

== ENCOUNTER 2020-02-26 15:14 | Emergency (ER) | payer SELFPAY ==
--- NOTE | 2020-02-26 17:19 | Emergency Department Report ---
[facility] Chief Complaint: Skin Rash Stated Complaint: RASH Time Seen by Provider: 02/26/20 17:14 Duration: 2 Days Rash Symptoms: Yes Itching Severity: mild Other History: 29-year-old -Algerian male presents to the emergency for rash between his legs. Patient states that it itches. ED Review of Systems ROS: Stated complaint: RASH Other details as noted in HPI ED Past Medical Hx - Past Medical History Previous Medical History?: Yes Hx Diabetes: Yes Hx Psychiatric Treatment: Yes (schizophrenia,bipolar) - Surgical History Past Surgical History?: No - Social History Smoking Status: Never Smoker Substance Use Type: None - Medications Home Medications: Home Medications Medication Instructions Recorded Confirmed Last Taken Type OLANzapine ZYDIS [ZyPREXA Zydis] 5 mg PO DAILY #30 tab.rapdis 05/18/19 05/22/19 Unknown Rx Sulfamethoxazole/Trimethoprim 1 each PO Q12HR #10 tablet 02/05/20 Unknown Rx [Bactrim DS TAB] Rash Exam - Exam General: Vital signs noted. No distress. Alert and acting appropriately. Lungs: No Use of Accessory Muscles Skin: Yes Other (Hyperpigmented area between the legs no rash appreciated) ED Medical Decision Making - Medical Decision Making 29-year-old -Algerian male presents to the emergency for rash between his legs. Patient states that it itches. Patient refused prescription cussing agitated and threatening. Critical care attestation.: If time is entered above; I have spent that time in minutes in the direct care of this critically ill patient, excluding procedure time. ED Disposition Clinical Impression: Rash, Agitation Disposition: DC-01 TO HOME OR SELFCARE Is pt being admited?: No Does the pt Need Aspirin: No Condition: Stable Instructions: Rash, Adult Additional Instructions: Patient can use hydrocortisone cream which is [id number] for his rash.
== END 2020-02-26 17:29 | disposition home or self-care (01) ==
LOC: ED 15:14
DX: R45.1 Restlessness and agitation (principal); R21 Rash and other nonspecific skin eruption; E11.9 Type 2 diabetes mellitus without complications; F25.9 Schizoaffective disorder, unspecified; Z79.899 Other long term (current) drug therapy

== ENCOUNTER 2020-02-27 00:11 | Emergency (ER) | payer SELFPAY ==
[2020-02-27 00:20] VITALS: BP 109/69
== END 2020-02-27 07:00 ==
LOC: ED 00:11
DX: R21 Rash and other nonspecific skin eruption (principal); Z53.21 Procedure and treatment not carried out due to patient leaving prior to being seen by health care provider

== ENCOUNTER 2020-05-13 20:48 | Emergency (ER) | payer MEDICAID ==
--- NOTE | 2020-05-13 21:28 | Event Note ---
ED Screening Note Date of service: 05/13/20 Time: 21:27 ED Screening Note: Patient is a 29-year-old -Belizean male with a history of schizophrenia, ADHD, anxiety and depression, bipolar disorder and type 1 diabetes who presents to the ED with acute onset persistent generalized weakness and fatigue for the last 2 days. Patient states that he was just discharged from [facility] 24 h ago after being admitted there overnight for observation due to hyperglycemia. Patient states that he has not eaten anything the whole day and try to drink some fluids only. Patient states that he has also not checked his blood sugar nor use any insulin since being discharged from [facility]. Patient denies dizziness, syncope, chest pain, shortness of breath, fever, chills, cough, dysuria, urinary frequency and urgency, abdominal pain, nausea and vomiting. This initial assessment/diagnostic orders/clinical plan/treatment(s) is/are subject to change based on patients health status, clinical progression and re- assessment by fellow clinical providers in the ED. Further treatment and workup at subsequent clinical providers discretion. Patient/guardian urged not to elope from the ED as their condition may be serious if not clinically assessed and managed. Initial orders include: CBC, CMP, UA, acetone
[2020-05-13 21:47] LABS: Basophils % (Auto) 0.1 % (0.0-1.8); Eosinophils # (Auto) 0.1 K/mm3 (0.0-0.4); Eosinophils % (Auto) 1.8 % (0.0-4.3); Hematocrit 39.1 % (35.5-45.6); Lymphocytes # (Auto) 0.3 K/mm3 (1.2-5.4); Lymphocytes % (Auto) 9.5 % (13.4-35.0); Mean Corpuscular HGB Conc 33 % (32-34); Mean Corpuscular Volume 88 fl (84-94); Monocytes # (Auto) 0.3 K/mm3 (0.0-0.8); Monocytes % (Auto) 9.4 % (0.0-7.3); Platelet Count 205 K/mm3 (140-440); Red Blood Count 4.47 M/mm3 (3.65-5.03)
[2020-05-13 22:10] LABS: Alanine Aminotransferase 13 units/L (7-56); Blood Urea Nitrogen 13 mg/dL (9-20); Calcium 8.9 mg/dL (8.4-10.2); Hemolysis Index 7
[2020-05-13 22:13] LABS: BUN/Creatinine Ratio 22
[2020-05-13] MEDS ORDERED: SODIUM CHLORIDE 0.9% 1000 ML 1,000 ML IV ONE ×2 (23:20→23:21)
[2020-05-13] MEDS ORDERED: INSULIN REGULAR, HUMAN 100 UNITS/1 ML IV ONE (23:21)
--- NOTE | 2020-05-13 23:49 | Emergency Department Report ---
<JIM MARTÍNEZ - Last Filed: 05/14/20 01:36> - General Chief complaint: Weakness Stated complaint: WEAKNESS Time Seen by Provider: 05/13/20 23:17 Source: patient Mode of arrival: Ambulatory Limitations: No Limitations - History of Present Illness Initial comments: CC: "My blood sugar is high. I threw up in the lobby." HPI: This is a 29 yo male with hx of schizophrenia, ADHD, anxiety, depression, bipolar disorder, and 1 diabetes mellitus who presents with generalized weakness and fatigue for 2 days. Patient was recently discharged from [facility] 24 hours ago. He admitted overnight due to hypoglycemia. Patient is not eating food today. He has tried to drink fluid bolus. He stated last night he had 2 blood sugar readings over 500. He denies any pain, chest pain, shortness of breath, fever, cough, urinary frequency urgency. Denies abdominal pain. He recently had one episode of emesis while in the waiting area. MD Complaint: generalized weakness -: Gradual, days(s) (2) Location: generalized Severity: moderate Consistency: constant Improves with: none Worsens with: none Associated Symptoms: nausea/vomiting - Related Data Previous Rx's Medication Instructions Recorded Last Taken Type OLANzapine ZYDIS [ZyPREXA Zydis] 5 mg PO DAILY #30 tab.rapdis 05/18/19 Unknown Rx Metoclopramide [Reglan] 10 mg PO QID PRN #20 tablet 05/14/20 Unknown Rx Potassium Phos,Monobasic (Nf) 500 mg PO BID #60 tablet.jesenia 05/14/20 Unknown Rx [K-Phos Original (Nf)] Allergies Allergy/AdvReac Type Severity Reaction Status Date / Time No Known Allergies Allergy Verified 05/17/19 21:21 ED Review of Systems Comment: All other systems reviewed and negative Constitutional: malaise. denies: chills, fever Respiratory: denies: cough, shortness of breath Cardiovascular: denies: chest pain Gastrointestinal: nausea, vomiting. denies: abdominal pain, diarrhea Genitourinary: denies: urgency Musculoskeletal: denies: back pain Neurological: denies: headache ED Past Medical Hx - Past Medical History Previous Medical History?: Yes Hx Diabetes: Yes Hx Psychiatric Treatment: Yes (schizophrenia,bipolar) - Social History Smoking Status: Never Smoker Substance Use Type: None - Medications Home Medications: Home Medications Medication Instructions Recorded Confirmed Last Taken Type OLANzapine ZYDIS [ZyPREXA Zydis] 5 mg PO DAILY #30 tab.rapdis 05/18/19 05/22/19 Unknown Rx Metoclopramide [Reglan] 10 mg PO QID PRN #20 tablet 05/14/20 Unknown Rx Potassium Phos,Monobasic (Nf) 500 mg PO BID #60 tablet.jesenia 05/14/20 Unknown Rx [K-Phos Original (Nf)] ED Physical Exam - General Limitations: No Limitations General appearance: alert, in no apparent distress, other (Appears nontoxic, appears comfortable, no acute distress) - Head Head exam: Present: atraumatic, normocephalic - Eye Eye exam: Present: normal appearance - ENT ENT exam: Present: mucous membranes dry - Neck Neck exam: Present: normal inspection, full ROM - Respiratory Respiratory exam: Present: normal lung sounds bilaterally. Absent: respiratory distress, wheezes, rales, rhonchi - Cardiovascular Cardiovascular Exam: Present: regular rate, normal rhythm, normal heart sounds. Absent: systolic murmur, diastolic murmur, rubs, gallop - GI/Abdominal GI/Abdominal exam: Present: soft, normal bowel sounds - Rectal Rectal exam: Present: deferred - Extremities Exam Extremities exam: Present: normal inspection - Back Exam Back exam: Present: normal inspection - Neurological Exam Neurological exam: Present: alert, oriented X3 - Psychiatric Psychiatric exam: Present: normal affect, normal mood - Skin Skin exam: Present: warm, dry, intact, normal color. Absent: rash ED Medical Decision Making - Lab Data Result diagrams: 05/13/20 21:36 05/13/20 21:36 Laboratory Results - last 24 hr 05/13/20 05/13/20 05/13/20 21:36 21:36 21:36 WBC 3.6 L RBC 4.47 Hgb 13.0 Hct 39.1 MCV 88 MCH 29 MCHC 33 RDW 13.0 L Plt Count 205 Lymph % (Auto) 9.5 L [place] % (Auto) 9.4 H Eos % (Auto) 1.8 Baso % (Auto) 0.1 Lymph # (Auto) 0.3 L [place] # (Auto) 0.3 Eos # (Auto) 0.1 Baso # (Auto) 0.0 Seg Neutrophils % 79.2 H Seg Neutrophils # 2.8 VBG pH Sodium 133 L Potassium 4.6 Chloride 98.3 Carbon Dioxide 27 Anion Gap 12 BUN 13 Creatinine 0.6 L Estimated GFR > 60 BUN/Creatinine Ratio 22 Glucose 380 H Calcium 8.9 Magnesium Total Bilirubin 0.30 AST 15 ALT 13 Alkaline Phosphatase 91 Total Creatine Kinase Total Protein 7.5 Albumin 4.0 Albumin/Globulin Ratio 1.1 TSH Salicylates < 0.3 L Acetaminophen 05/13/20 05/13/20 05/13/20 21:36 21:36 21:36 WBC RBC Hgb Hct MCV MCH MCHC RDW Plt Count Lymph % (Auto) [place] % (Auto) Eos % (Auto) Baso % (Auto) Lymph # (Auto) [place] # (Auto) Eos # (Auto) Baso # (Auto) Seg Neutrophils % Seg Neutrophils # VBG pH 7.364 Sodium Potassium Chloride Carbon Dioxide Anion Gap BUN Creatinine Estimated GFR BUN/Creatinine Ratio Glucose Calcium Magnesium Total Bilirubin AST ALT Alkaline Phosphatase Total Creatine Kinase Total Protein Albumin Albumin/Globulin Ratio TSH 0.782 Salicylates Acetaminophen 5.0 L 05/13/20 Unknown WBC RBC Hgb Hct MCV MCH MCHC RDW Plt Count Lymph % (Auto) [place] % (Auto) Eos % (Auto) Baso % (Auto) Lymph # (Auto) [place] # (Auto) Eos # (Auto) Baso # (Auto) Seg Neutrophils % Seg Neutrophils # VBG pH Sodium Potassium Chloride Carbon Dioxide Anion Gap BUN Creatinine Estimated GFR BUN/Creatinine Ratio Glucose Calcium Magnesium 0.20 L* Total Bilirubin AST ALT Alkaline Phosphatase Total Creatine Kinase < 7 L Total Protein Albumin Albumin/Globulin Ratio TSH Salicylates Acetaminophen - EKG Data -: EKG Interpreted by Nc EKG shows normal: sinus rhythm, axis, intervals, QRS complexes, ST-T waves Rate: tachycardia - EKG Data Interpretation: normal EKG 05/13/20 23:54 EKG obtained 2346 EKG interpreted by me Sinus tachycardia rate 100 bpm normal axis normal ID normal QRS normal QTC intervals. No ST elevation. Normal T wave pattern. Normal EKG - Medical Decision Making General weakness due to hypovolemia persistent hypoglycemia. Patient received IV fluid therapy and IV insulin. Generalized weakness also may be due to severe hypomagnesemia, I spoke with laboratory immunologist, repeat samples have not been processed due to equipment failure. My colleague will follow up on results. Anticipate admission if hypomagnesemia is confirmed ED Disposition Clinical Impression: Hyperglycemia, History of nausea and vomiting Disposition: -01 TO HOME OR SELFCARE Condition: Good Additional Instructions: Please take the nausea medication and potassium phosphate supplementation as directed. Please make certain to consume a diabetic appropriate diet, please follow-up with your primary care doctor in the next 3 to 5 days, please make certain to avoid carbohydrate consumption excessively, and drink 3 to 6 cups of water per day. Please return to the emergency room right away with new pain, worsened pain, migration of pain, projectile vomiting, change in mental status, confusion, inability to tolerate liquid feeds, new, worsened or different symptoms not present on the initial emergency room evaluation. Referrals: ROSELINE NELSON MD [Primary Care Provider] - 3-5 Days <MEIR NAYAK - Last Filed: 05/14/20 03:22> ED Review of Systems ROS: Stated complaint: WEAKNESS Other details as noted in HPI ED Course Vital Signs 05/13/20 05/14/20 05/14/20 21:22 00:30 02:30 Temperature 99.8 F H Pulse Rate 108 H 109 H 104 H Respiratory 18 25 H 18 Rate Blood Pressure 122/63 Blood Pressure 127/75 123/68 [Left] O2 Sat by Pulse 99 98 Oximetry - Reevaluation(s) Reevaluation #1: 05/14/20 02:27 No active vomiting. Tachycardia improved, heart rate 103 bpm. Repeat magnesium level within normal limits. Mild hypophosphatemia appreciated. Repeat Accu- Chek pending, oral phosphate supplementation ordered, additional IV fluids ordered. Reevaluation #2: 05/14/20 03:19 Patient able to tolerate oral medications without vomiting. His heart rate is improved, currently 100 to 102 bpm. He is sleeping comfortably at this time, and in no acute distress. ED Medical Decision Making - Lab Data Result diagrams: 05/13/20 21:36 05/13/20 21:36 Critical care attestation.: If time is entered above; I have spent that time in minutes in the direct care of this critically ill patient, excluding procedure time. ED Disposition Is pt being admited?: No Does the pt Need Aspirin: No
[2020-05-14 00:48] LABS: Bilirubin,Urine NEG (Negative); Blood,Urine NEG (Negative); Color,Urine Yellow (Yellow); Protein,Urine <15 mg/dL mg/dL (Negative); Urobilinogen,Urine < 2.0 mg/dL (<2.0)
[2020-05-14 02:02] LABS: Calcium 9.2 mg/dL (8.4-10.2)
[2020-05-14] MEDS ORDERED: K-PHOS NEUTRAL 250 MG TAB PO ONE (02:26)
[2020-05-14] MEDS ORDERED: LACTATED RINGERS 1,000 ML IV ONE (02:26)
[2020-05-14 04:33] VITALS: BP 105/59
== END 2020-05-14 05:59 | disposition home or self-care (01) ==
LOC: ED 20:48
DX: E10.65 Type 1 diabetes mellitus with hyperglycemia (principal); R11.2 Nausea with vomiting, unspecified; F32.9 Major depressive disorder, single episode, unspecified; F20.9 Schizophrenia, unspecified; Z79.899 Other long term (current) drug therapy
CPT/HCPCS: 36415; 80053; 81001; 82310; 82550; 82805; 82962; 83690; 83735; 84100; 84443; 85025; 93005; 96361; 96374; 99284; J7030; J7120; 80320; G0480; J1815